=== PATIENT | female | born 1975 ===

== ENCOUNTER 2016-09-04 20:06 | Emergency (ER) | payer BC ==
[2016-09-04 20:22] VITALS: RESP 20; TEMP 98
--- NOTE | 2016-09-04 20:46 | C.PDOC ---
History Of Present Illness 41 year old female, P:7 and 7 days post- with earlier vaginal delivery for pre-eclampsia, presents to the ED after being referred from Dr. Elias's office this afternoon for persistent elevated blood pressure. Patient states after giving she was discharged with Labetalol 200 mg BID and Tylenol 1000mg and notes she has a mild headache. She takes her Labetalol at 09: 00 and 21:00 and has not taken an afternoon dose. Time Seen by Provider: 09/04/16 20:32 Chief Complaint (Nursing): High Blood Pressure History Per: Patient History/Exam Limitations: no limitations Onset/Duration Of Symptoms: Days Current Symptoms Are (Timing): Still Present Associated Symptoms: Headache Severity: Mild Past Medical History Reviewed: Historical Data, Nursing Documentation, Vital Signs Vital Signs: Last Vital Signs Temp 98 F 09/04/16 20:14 Pulse 94 H 09/04/16 20:14 Resp 20 09/04/16 20:14 BP 147/95 H 09/04/16 20:14 Pulse Ox 100 09/04/16 20:47 - Medical History PMH: Asthma Family History: States: Unknown Family Hx - Social History Hx Alcohol Use: Yes Hx Substance Use: No Physical Exam - Physical Exam Appears: Non-toxic, No Acute Distress Skin: Normal Color, Warm, Dry Head: Atraumatic, Normacephalic Eye(s): bilateral: Normal Inspection Oral Mucosa: Moist Neck: Supple Chest: Symmetrical, No Deformity Cardiovascular: Rhythm Regular Respiratory: Normal Breath Sounds, No Accessory Muscle Use, No Rales, No Rhonchi , No Wheezing Extremity: Normal ROM Neurological/Psych: Oriented x3, Normal Speech, Normal Cognition ED Course And Treatment O2 Sat by Pulse Oximetry: 100 (Room air) Pulse Ox Interpretation: Normal Progress Note: patient treated with Labetalol and Tylenol. Patient declined labs and urinalysis. Medical Decision Making Medical Decision Making: Early delivery for pre-ecclampsia delivered 7 days ago Educated to take Labetolol 200 @ 8AM and 4PM Tylenol 1000 mg Q6H Follow-up with Dr. Elias < 1 wk. Disposition Doctor Will See Patient In The: Office Counseled Patient/Family Regarding: Studies Performed, Diagnosis - Disposition Referrals: Odin Elias MD [Medical Doctor] - Disposition: HOME/ ROUTINE Disposition Time: 20:46 Condition: GOOD Additional Instructions: labetolol 200 mg twice a day: 8AM and 4PM Tylenol 1000 mg every 6 hours as needed for mild headaches. Follow-up with Dr. Elias in < 1 week as directed. Prescriptions: Labetalol [Trandate] 200 mg PO BID #20 tab Instructions: Preeclampsia and Eclampsia After Delivery (GEN) - Clinical Impression Clinical Impression: Hypertension in , condition - Scribe Statement The provider has reviewed the documentation as recorded by the Scribe Lori Chung. Provider Attestation: All medical record entries made by the Scribe were at my direction and personally dictated by me. I have reviewed the chart and agree that the record accurately reflects my personal performance of the history, physical exam, medical decision making, and the department course for this patient. I have also personally directed, reviewed, and agree with the discharge instructions and disposition.
[2016-09-04 21:16] VITALS: BP 137/89; PULSE 87
[2016-09-04 21:17] VITALS: O2SAT 100
== END 2016-09-04 21:16 | disposition home or self-care (01) ==
LOC: C.ER 20:06
DX: O16.5 Unspecified maternal hypertension, complicating the puerperium (principal)